=== PATIENT | female | born 1985 | race Native Hawaiian/Other Pacific Islander ===

== ENCOUNTER 2020-06-19 23:44 | Emergency (ER) | payer SELFPAY ==
[2020-06-19] MEDS ORDERED: ACETAMINOPHEN 500 MG TAB PO ONE (23:58)
[2020-06-20 00:48] LABS: Basophils % (Auto) 0.2 % (0.0-1.8); Eosinophils % (Auto) 0.1 % (0.0-4.3); Hematocrit 32.9 % (30.3-42.9); Hemoglobin 10.8 gm/dl (10.1-14.3); Lymphocytes % (Auto) 9.3 % (13.4-35.0); Mean Corpuscular HGB Conc 33 % (30-34); Mean Corpuscular Volume 81 fl (79-97); Monocytes # (Auto) 0.7 K/mm3 (0.0-0.8); Monocytes % (Auto) 6.7 % (0.0-7.3); Platelet Count 321 K/mm3 (140-440); Red Blood Count 4.06 M/mm3 (3.65-5.03); Red Cell Distribution Width 17.6 % (13.2-15.2)
[2020-06-20 01:10] LABS: Alanine Aminotransferase 19 units/L (7-56); Albumin 4.4 g/dL (3.9-5); BUN/Creatinine Ratio 8; Blood Urea Nitrogen 6 mg/dL (7-17); Calcium 9.5 mg/dL (8.4-10.2); Hemolysis Index 1
[2020-06-20] MEDS ORDERED: SODIUM CHLORIDE 0.9% 1000 ML 1,000 ML IV ONE (01:43)
[2020-06-20] MEDS ORDERED: KETOROLAC 30 MG/1 ML INJ IV ONE (01:43)
--- NOTE | 2020-06-20 01:47 | Emergency Department Report ---
ED Abdominal Pain HPI - General Chief Complaint: Abdominal Pain Stated Complaint: ABDOMINAL/BACK PAIN AND FEVER X 2DAYS Time Seen by Provider: 06/20/20 01:37 Source: patient Mode of arrival: Ambulatory Limitations: No Limitations - History of Present Illness Initial Comments: 34-year-old female presents to ED with abdominal pain for 3 days. Patient sta ramya pain is located in lower abdomen and radiating to the lower back. Patient reports urinary frequency, hematuria, and fever. She reports only small amount of clear vaginal discharge. MD Complaint: abdominal pain -: days(s) (2) Location: LLQ, RLQ, suprapubic Radiation: back Migration to: no migration Severity: moderate Severity scale (0 -10): 8 Quality: aching Consistency: constant Improves With: nothing Worsens With: nothing Associated Symptoms: fever, hematuria. denies: nausea, vomiting, diarrhea - Related Data Previous Rx's Medication Instructions Recorded Last Taken Type Naproxen [Naprosyn] 500 mg PO BID #20 tablet 06/20/20 Unknown Rx Nitrofurantoin Weber/M-Cryst 100 mg PO Q12HR 7 Days #14 capsule 06/20/20 Unknown Rx [Macrobid CAP] Allergies Allergy/AdvReac Type Severity Reaction Status Date / Time No Known Allergies Allergy Verified 06/20/20 01:38 ED Review of Systems ROS: Stated complaint: ABDOMINAL/BACK PAIN AND FEVER X 2DAYS Other details as noted in HPI Comment: All other systems reviewed and negative Constitutional: fever Respiratory: denies: cough Gastrointestinal: abdominal pain. denies: nausea, vomiting, diarrhea, constipation Genitourinary: frequency, hematuria Neurological: headache ED Past Medical Hx - Past Medical History Previous Medical History?: No - Surgical History Past Surgical History?: No - Social History Smoking Status: Never Smoker Substance Use Type: None - Medications Home Medications: Home Medications Medication Instructions Recorded Confirmed Last Taken Type Naproxen [Naprosyn] 500 mg PO BID #20 tablet 06/20/20 Unknown Rx Nitrofurantoin Weber/M-Cryst 100 mg PO Q12HR 7 Days #14 capsule 06/20/20 Unknown Rx [Macrobid CAP] ED Physical Exam - General Limitations: No Limitations General appearance: alert, in no apparent distress - Head Head exam: Present: atraumatic, normocephalic - Eye Eye exam: Present: normal appearance, EOMI - ENT ENT exam: Present: mucous membranes moist - Neck Neck exam: Present: normal inspection - Respiratory Respiratory exam: Present: normal lung sounds bilaterally. Absent: respiratory distress - Cardiovascular Cardiovascular Exam: Present: normal rhythm, tachycardia - GI/Abdominal GI/Abdominal exam: Present: soft, tenderness (RLQ, suprapubic, LLQ). Absent: distended - Extremities Exam Extremities exam: Present: normal inspection - Back Exam Back exam: Absent: CVA tenderness (R), CVA tenderness (L) - Neurological Exam Neurological exam: Present: alert, oriented X3 - Psychiatric Psychiatric exam: Present: normal affect, normal mood - Skin Skin exam: Present: warm, dry, intact, normal color ED Course Vital Signs 06/19/20 06/20/20 06/20/20 23:50 01:36 01:48 Temperature 101.2 F H 99.1 F Pulse Rate 132 H 89 Respiratory 22 18 18 Rate Blood Pressure 155/79 Blood Pressure 121/68 [Left] O2 Sat by Pulse 95 100 100 Oximetry 06/20/20 03:37 Temperature Pulse Rate 82 Respiratory 16 Rate Blood Pressure Blood Pressure 128/72 [Left] O2 Sat by Pulse 100 Oximetry ED Medical Decision Making - Lab Data Result diagrams: 06/20/20 00:01 06/20/20 00:01 - Radiology Data Radiology results: report reviewed, image reviewed - Medical Decision Making 34-year-old female presents to ED with fever and urinary symptoms. Patient initially with temperature of 101.2. Patient was given Tylenol, IV fluids, Toradol. WBCs normal. Lactic acid normal. UA shows evidence of UTI with 2+ bacteria present. CT abdomen pelvis was obtained, however, it does not show any acute findings. Patient given IV Rocephin here in the ED. She is feeling much better at this time. Will discharge home with antibiotics. Outpatient follow- up advised. Return precautions given. - Differential Diagnosis UTI, kidney stone, pyelonephritis Critical care attestation.: If time is entered above; I have spent that time in minutes in the direct care of this critically ill patient, excluding procedure time. ED Disposition Clinical Impression: UTI (urinary tract infection) Disposition: - TO HOME OR SELFCARE Is pt being admited?: No Condition: Stable Instructions: Abdominal Pain (ED) Prescriptions: Nitrofurantoin Weber/M-Cryst [Macrobid CAP] 100 mg PO Q12HR 7 Days #14 capsule Naproxen [Naprosyn] 500 mg PO BID #20 tablet Referrals: PRIMARY CARE, [Primary Care Provider] - 3-5 Days
[2020-06-20 02:06] LABS: Bacteria,Urine 2+ /HPF (Negative); Bilirubin,Urine NEG (Negative); Blood,Urine SM (Negative); Color,Urine Straw (Yellow); Protein,Urine <15 mg/dL mg/dL (Negative); Urobilinogen,Urine < 2.0 mg/dL (<2.0)
[2020-06-20] MEDS ORDERED: cefTRIAXone/NS 1 GM/50 ML 1 GM/50 ML BAG IV ONE (02:44)
--- NOTE | 2020-06-20 03:29 | Cat Scan Report ---
CT ABDOMEN AND PELVIS WITH CONTRAST INDICATION / CLINICAL INFORMATION: abd pain. TECHNIQUE: Axial CT images were obtained through the abdomen and pelvis after 100 mL Omnipaque [address] scans at this location are performed using CT dose reduction for ALARA by means of automated exposure control. COMPARISON: None available. FINDINGS: LOWER CHEST: No significant abnormality. LIVER: 1 cm density lesion in the right lobe of the liver. GALLBLADDER: No significant abnormality. BILE DUCTS: No significant abnormality. PANCREAS: No significant abnormality. SPLEEN: No significant abnormality. ADRENALS: No significant abnormality. RIGHT KIDNEY / URETER: No significant abnormality. LEFT KIDNEY / URETER: No significant abnormality. STOMACH / SMALL BOWEL: No significant abnormality. COLON: No significant abnormality. APPENDIX: No significant abnormality. PERITONEUM: No free fluid. No free air. No fluid collection. LYMPH NODES: No significant adenopathy. AORTA / ARTERIES: No significant abnormality. IVC / VEINS: No significant abnormality. URINARY BLADDER: No significant abnormality. REPRODUCTIVE ORGANS: No significant abnormality. ADDITIONAL FINDINGS: None. SKELETAL SYSTEM: No significant abnormality. IMPRESSION: 1. No acute process in the abdomen or pelvis. 2. 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 Signer Name: Ferny Ruiz MD Signed: 06/20/2020 3:25 AM Workstation Name: [employer]
[2020-06-20 03:37] VITALS: BP 128/72
== END 2020-06-20 05:00 | disposition home or self-care (01) ==
LOC: ED 23:44
DX: N39.0 Urinary tract infection, site not specified (principal)
CPT/HCPCS: 36415; 74177; 80053; 81001; 82140; 84703; 85025; 87086; 96361; 96365; 96375; 99284; J0696; J1885; J7030; Q9967; 87076; 87186

== ENCOUNTER 2022-01-03 14:29 | Emergency (ER) | payer SELFPAY ==
[2022-01-03 20:40] LABS: Basophils % (Auto) 0.3 % (0.0-1.8); Eosinophils % (Auto) 0.1 % (0.0-4.3); Hematocrit 35.1 % (30.3-42.9); Hemoglobin 11.1 gm/dl (10.1-14.3); Lymphocytes # (Auto) 1.4 K/mm3 (1.2-5.4); Lymphocytes % (Auto) 11.5 % (13.4-35.0); Mean Corpuscular HGB Conc 32 % (30-34); Mean Corpuscular Volume 80 fl (79-97); Monocytes # (Auto) 0.5 K/mm3 (0.0-0.8); Monocytes % (Auto) 4.1 % (0.0-7.3); Platelet Count 307 K/mm3 (140-440); Red Blood Count 4.37 M/mm3 (3.65-5.03); Red Cell Distribution Width 15.7 % (13.2-15.2)
[2022-01-03 20:45] LABS: Blood Urea Nitrogen 6 mg/dL (7-17); Calcium 8.8 mg/dL (8.4-10.2); Hemolysis Index 2
[2022-01-03 20:51] LABS: BUN/Creatinine Ratio 10
[2022-01-04] MEDS ORDERED: ONDANSETRON 4 MG/2 ML INJ IV ONE (00:37)
[2022-01-04] MEDS ORDERED: MORPHINE 4 MG/1 ML INJ IV ONE (00:37)
--- NOTE | 2022-01-04 02:29 | Cat Scan Report ---
CT ABDOMEN AND PELVIS WITH CONTRAST INDICATION / CLINICAL INFORMATION: R.L.Q. abdominal pain. TECHNIQUE: Axial CT images were obtained through the abdomen and pelvis after 100 cc of Omnipaque [address] scans at this location are performed using CT dose reduction for ALARA by means of automated exposure control. COMPARISON: 06/20/2020 FINDINGS: LOWER CHEST: No significant abnormality. AORTA / ARTERIES: No significant abnormality. IVC / VEINS: No significant abnormality. LYMPH NODES: No significant adenopathy. COLON: No significant abnormality. APPENDIX: No significant abnormality. STOMACH / SMALL BOWEL: No significant abnormality. PERITONEUM: No free fluid. No free air. No fluid collection. LIVER: Redemonstrated fatty attenuating lesion within the right hepatic lobe, otherwise no significan t abnormality. GALLBLADDER: No significant abnormality. BILE DUCTS: No significant abnormality. PANCREAS: No significant abnormality. SPLEEN: No significant abnormality. ADRENALS: No significant abnormality. RIGHT KIDNEY / URETER: No significant abnormality. LEFT KIDNEY / URETER: No significant abnormality. URINARY BLADDER: No significant abnormality. REPRODUCTIVE ORGANS: No significant abnormality. SKELETAL SYSTEM: No significant abnormality. ADDITIONAL FINDINGS: None. IMPRESSION: 1. No acute intra-abdominal intrapelvic pathology, specifically normal-appearing appendix. Signer Name: Ahmet Kaminski DO Signed: 01/04/2022 2:24 AM Workstation Name: [email or web address]
[2022-01-04 03:19] LABS: Bacteria,Urine 1+ /HPF (Negative); Bilirubin,Urine NEG (Negative); Blood,Urine MOD (Negative); Color,Urine Yellow (Yellow); Mucus,Urine FEW /HPF; Protein,Urine <15 mg/dL mg/dL (Negative); Urobilinogen,Urine < 2.0 mg/dL (<2.0)
[2022-01-04] MEDS ORDERED: cefTRIAXone/NS 1 GM/50 ML 1 GM/50 ML BAG IV ONE (03:51)
[2022-01-04] MEDS ORDERED: KETOROLAC 30 MG/1 ML INJ IV ONE (03:52)
--- NOTE | 2022-01-04 03:54 | Emergency Department Report ---
ED Abdominal Pain HPI - General Chief Complaint: Abdominal Pain Stated Complaint: RIGHT ABD PAIN/FEVER Source: patient Mode of arrival: Ambulatory Limitations: No Limitations - History of Present Illness Initial Comments: 36-year-old female presents to the emergency department for 2-day history of right lower quadrant pain along with fever, nausea, and dysuria. She denies vomiting and vaginal discharge. She states that pain is 10 out of 10 and worse when she walks around. MD Complaint: abdominal pain -: Gradual, days(s) (To) Location: RLQ Radiation: none Migration to: no migration Severity scale (0 -10): 8 Quality: aching Consistency: constant Worsens With: movement, other (Walking and palpation) Associated Symptoms: nausea, fever, dysuria. denies: vomiting, diarrhea, chills, constipation, hematemesis, hematochezia, melena, hematuria, anorexia, syncope Treatments Prior to Arrival: NSAIDs - Related Data LMP (females 10-50): this week Previous Rx's Medication Instructions Recorded Last Taken Type Naproxen [Naprosyn] 500 mg PO BID #20 tablet 06/20/20 Unknown Rx Nitrofurantoin Atlantic/M-Cryst 100 mg PO Q12HR 7 Days #14 capsule 06/20/20 Unknown Rx [Macrobid CAP] Naproxen [Naprosyn] 500 mg PO BID #14 tab 01/04/22 Unknown Rx Phenazopyridine [Pyridium] 200 mg PO BID #6 tab 01/04/22 Unknown Rx cephALEXin [Keflex] 500 mg PO Q12HR 7 Days #14 cap 01/04/22 Unknown Rx Allergies Allergy/AdvReac Type Severity Reaction Status Date / Time No Known Allergies Allergy Verified 06/20/20 01:38 ED Review of Systems ROS: Stated complaint: RIGHT ABD PAIN/FEVER Other details as noted in HPI Comment: All other systems reviewed and negative Constitutional: fever, malaise. denies: chills, weakness Eyes: denies: vision change ENT: denies: throat pain, congestion Respiratory: denies: cough, shortness of breath, SOB with exertion, SOB at rest, stridor, wheezing Cardiovascular: denies: chest pain, palpitations, dyspnea on exertion, orthopnea, edema, syncope, paroxysmal nocturnal dyspnea Gastrointestinal: abdominal pain, nausea. denies: vomiting, diarrhea, hematemesis, melena, hematochezia Genitourinary: denies: urgency, dysuria, frequency, hematuria, discharge Musculoskeletal: denies: back pain, arthralgia, myalgia Skin: denies: rash, lesions Neurological: denies: headache, weakness Psychiatric: denies: anxiety Hematological/Lymphatic: denies: easy bleeding, easy bruising ED Past Medical Hx - Social History Smoking Status: Never Smoker Substance Use Type: None - Medications Home Medications: Home Medications Medication Instructions Recorded Confirmed Last Taken Type Naproxen [Naprosyn] 500 mg PO BID #20 tablet 06/20/20 Unknown Rx Nitrofurantoin Atlantic/M-Cryst 100 mg PO Q12HR 7 Days #14 capsule 06/20/20 Unknown Rx [Macrobid CAP] Naproxen [Naprosyn] 500 mg PO BID #14 tab 01/04/22 Unknown Rx Phenazopyridine [Pyridium] 200 mg PO BID #6 tab 01/04/22 Unknown Rx cephALEXin [Keflex] 500 mg PO Q12HR 7 Days #14 cap 01/04/22 Unknown Rx ED Physical Exam - General Limitations: No Limitations General appearance: alert, in no apparent distress - Head Head exam: Present: atraumatic, normocephalic - Eye Eye exam: Present: normal appearance. Absent: conjunctival injection - Neck Neck exam: Present: normal inspection, full ROM. Absent: tenderness, lymphadenopathy - Respiratory Respiratory exam: Present: normal lung sounds bilaterally. Absent: respiratory distress, wheezes, rales, rhonchi, stridor, chest wall tenderness - Cardiovascular Cardiovascular Exam: Present: tachycardia. Absent: normal heart sounds - GI/Abdominal GI/Abdominal exam: Present: soft, tenderness (Right lower quadrant), guarding, normal bowel sounds. Absent: distended, rebound, rigid - Extremities Exam Extremities exam: Present: normal inspection, full ROM, normal capillary refill. Absent: tenderness, pedal edema, joint swelling, calf tenderness - Back Exam Back exam: Present: normal inspection, full ROM, CVA tenderness (R). Absent: CVA tenderness (L), paraspinal tenderness, vertebral tenderness - Neurological Exam Neurological exam: Present: alert, oriented X3, normal gait, reflexes normal. Absent: motor sensory deficit - Psychiatric Psychiatric exam: Present: normal affect, normal mood - Skin Skin exam: Present: warm, dry, intact, normal color ED Course Vital Signs 01/03/22 01/04/22 01/04/22 15:11 00:15 05:18 Temperature 98.4 F 99.4 F Pulse Rate 107 H 112 H 96 H Respiratory 18 16 14 Rate Blood Pressure 124/75 137/74 132/70 [Left] O2 Sat by Pulse 97 100 100 Oximetry ED Medical Decision Making - Lab Data Result diagrams: 01/03/22 20:01 01/03/22 20:01 - Radiology Data Radiology results: report reviewed CT abdomen and pelvis with contrast: FINDINGS: LOWER CHEST: No significant abnormality. AORTA / ARTERIES: No significant abnormality. IVC / VEINS: No significant abnormality. LYMPH NODES: No significant adenopathy. COLON: No significant abnormality. APPENDIX: No significant abnormality. STOMACH / SMALL BOWEL: No significant abnormality. PERITONEUM: No free fluid. No free air. No fluid collection. LIVER: Redemonstrated fatty attenuating lesion within the right hepatic lobe, otherwise no significant abnormality. GALLBLADDER: No significant abnormality. BILE DUCTS: No significant abnormality. PANCREAS: No significant abnormality. SPLEEN: No significant abnormality. ADRENALS: No significant abnormality. RIGHT KIDNEY / URETER: No significant abnormality. LEFT KIDNEY / URETER: No significant abnormality. URINARY BLADDER: No significant abnormality. REPRODUCTIVE ORGANS: No significant abnormality. SKELETAL SYSTEM: No significant abnormality. ADDITIONAL FINDINGS: None. IMPRESSION: 1. No acute intra-abdominal intrapelvic pathology, specifically normal- appearing appendix. - Medical Decision Making 36-year-old female presents to the emergency department for 2-day history of right lower quadrant pain along with fever, nausea, and dysuria. She denies vomiting and vaginal discharge. She states that pain is 10 out of 10 and worse when she walks around. Patient noted to be tender to right lower quadrant on assessment along with right CVA tenderness. Patient noted to have slightly elevated WBC count but no other gross abnormalities noted on labs. Urine positive for urinary tract infection. CT scan without any acute abnormalities noted. Patient will be treated with Rocephin 1 g IV while in the emergency department then discharged home with Keflex 500 mg twice daily with naproxen and Pyridium to use for pain. Pain was treated with IV morphine, Zofran, and Toradol while in the emergency department. She is advised to take medications as prescribed and follow-up with primary care provider if no improvement or worsening symptoms. She verbalized understanding of and agreement with plan of care. Critical care attestation.: If time is entered above; I have spent that time in minutes in the direct care of this critically ill patient, excluding procedure time. ED Disposition Clinical Impression: UTI (urinary tract infection) Qualifiers: Urinary tract infection type: acute cystitis Hematuria presence: with hematuria Qualified Code(s): N30.01 - Acute cystitis with hematuria Disposition: HOME / SELF CARE / HOMELESS Is pt being admited?: No Does the pt Need Aspirin: No Condition: Stable Instructions: Antibiotic Medicine, Adult, [id number], Urinary Tract Infection, Adult, [id number], Abdominal Pain (ED) Additional Instructions: Take medications as prescribed. Increase noncaffeinated fluid intake. Follow- up with primary care provider if no improvement or worsening symptoms. Return to the emergency department as needed. Prescriptions: cephALEXin [Keflex] 500 mg PO Q12HR 7 Days #14 cap Naproxen [Naprosyn] 500 mg PO BID #14 tab Phenazopyridine [Pyridium] 200 mg PO BID #6 tab Referrals: DI BREWER MD [Primary Care Provider] - 3-5 Days Forms: Work/School Release Form(ED) Time of Disposition: 03:54
[2022-01-04 05:19] VITALS: BP 132/70
== END 2022-01-04 05:19 | disposition home or self-care (01) ==
LOC: ED 14:29
DX: N39.0 Urinary tract infection, site not specified (principal); Z79.899 Other long term (current) drug therapy
CPT/HCPCS: 36415; 74177; 80048; 81001; 83690; 84702; 85025; 87086; 96365; 96375; 99284; J0696; J1885; J2270; J2405; Q9967; 87186